=== PATIENT | male | born 1985 | race Caucasian/White ===

== ENCOUNTER 2022-02-02 11:38 | Emergency (ER) | payer OTHER ==
[2022-02-02 11:43] VITALS: BP 106/62; PULSE 60; RESP 18; TEMP 97.9; BMI 25.8
== END 2022-02-02 13:21 | disposition home or self-care (01) ==
LOC: JERFT 11:38
DX: S93.601A Unspecified sprain of right foot, initial encounter (principal)
CPT/HCPCS: 73610-TC-RT-FY; 73630-TC-RT-FY; 99284-25